=== PATIENT | male | born 1995 | race African-American/Black ===

== ENCOUNTER 2021-07-04 08:54 | Emergency (ER) | payer BC ==
[~2021-07-04] VITALS: Ht 177.8 cm; Wt 95.5 kg
[~2021-07-04 08:54] MED LIST: CIPRO 500MG TA500 MG PO; NORCO 325 MG-51 TAB PO
[2021-07-04 09:01] VITALS: TEMP 97
[2021-07-04 09:26] LABS: BASO % 0.6 % (0.0-2.0); EOS # 0.1 K/mm3 (0.0-0.7); EOS % 1.2 % (0.0-4.0); GRAN # 2.4 K/mm3 (1.4-6.5); GRAN % 45.7 % (42.2-75.2); HEMOGLOBIN 14.9 g/dl (13.5-18.0); LYMPH # 2.1 K/mm3 (1.2-3.4); LYMPH % 40.1 % (20.0-51.0); MEAN CELL VOLUME 84 fl (80.0-100.0); MEAN CORPUSCULAR HEMOGLOBIN 30 pg (27-31); MEAN CORPUSCULAR HGB CONC 36 g/dl (33.0-37.0); MEAN PLATELET VOLUME 9.4 fl (7.4-10.4); MONO # 0.6 K/mm3 (0.1-0.6); MONO % 12.2 % (1.7-9.3); PLATELET COUNT 203 K/mm3 (130-400); RED BLOOD COUNT 4.99 M/mm3 (4.20-5.60); REDCELL DISTRIBUTION WIDTH-CV 13.4 % (11.5-14.5)
[2021-07-04 09:45] LABS: ALBUMIN 3.8 gm/dL (3.5-5.0); BILIRUBIN,TOTAL 0.8 mg/dL (0.2-1.2); CALCIUM 8.6 mg/dL (8.4-10.2); CREATININE, serum 1.22 mg/dL (0.72-1.25); POTASSIUM 3.9 mmol/L (3.5-4.5)
[2021-07-04 10:10] VITALS: BP 144/58; PULSE 61
== END 2021-07-04 10:11 | disposition home or self-care (01) ==
LOC: COL.ER 08:54
PROVIDERS: Family Medicine
DX: R07.89 Other chest pain (principal); F17.210 Nicotine dependence, cigarettes, uncomplicated

== ENCOUNTER → 2021-09-01 | Outpatient (CLI) | payer BC | LOC: COL.RAD 10:20 | DX: M25.572 Pain in left ankle and joints of left foot (principal) | CPT/HCPCS: J3301; Q9967 ==